=== PATIENT | female | born 1975 | race Caucasian/White ===

== ENCOUNTER 2023-06-14 14:28 | Emergency (ER) | payer OTHER ==
[~2023-06-14] VITALS: Ht 157.5 cm; Wt 58.1 kg
[2023-06-14 15:05] LABS: BASOPHILS 0.3 % (0-2); EOSINOPHILS 8.5 % (0-6); HEMATOCRIT 37.2 % (35.0-50.0); HEMOGLOBIN 12.5 g/dL (12.0-18.0); MCH 31.9 (27-36); MCHC 33.6 g/dl (30-36); MCV 94.8 fl (81-99); MONOCYTES 5.9 % (0-12); NEUTROPHILS 55.3 % (39-80); PLATELET COUNT 281 K/uL (140-440); RBC 3.92 M/ul (4.3-5.7); RDW 13.1 (10.5-15.0)
[2023-06-14] MEDS ORDERED: NORTRIPTYLINE H10 MG PO (15:07)
[2023-06-14] MEDS ORDERED: FLUTICASONE PRO16 GM NAS (15:07)
[2023-06-14] MEDS ORDERED: VENTOLIN HFA18 GM (15:07)
[2023-06-14] MEDS ORDERED: HYDROXYZINE HCL25 MG PO (15:07)
[2023-06-14 15:13] LABS: ALBUMIN 3.7 g/dL (3.4-5.0); ALBUMIN/GLOBULIN RATIO 1.09 (1.1-2.4); BILIRUBIN, TOTAL 0.2 ng/dL (0.2-1.0); BUN/CREATININE RATIO 27.58 (6.0-28.6); CREATININE, SERUM 0.58 mg/dL (0.55-1.02); PROTEIN, TOTAL 7.1 g/dL (6.4-8.2)
[2023-06-14 15:19] LABS: BILIRUBIN, URINE NEGATIVE (negative); BLOOD/HGB, URINE NEGATIVE (Negative); KETONE, URINE NEGATIVE (Negative); LEUK ESTERASE, URINE NEGATIVE (negative); NITRITE, URINE NEGATIVE (negative); PH, URINE 5.5 (5-7)
[2023-06-14] MEDS ORDERED: IBU600 MG PO (16:12)
[2023-06-14 16:21] VITALS: BP 99/59
== END 2023-06-14 16:12 | disposition home or self-care (01) ==
LOC: ED 14:28
PROVIDERS: Internal Medicine
DX: K42.9 Umbilical hernia without obstruction or gangrene (principal); Z79.899 Other long term (current) drug therapy
CPT/HCPCS: 36415; 74177; 80053; 81003; 84703; 85025; Q9967